=== PATIENT | female | born 1945 | race Caucasian/White ===

== ENCOUNTER 2017-12-03 11:07 | Emergency (ER) | payer MEDICARE, BC ==
[~2017-12-03] VITALS: Ht 165.1 cm; Wt 65.0 kg
[2017-12-03] MEDS ORDERED: LEVO88TA4 PO (11:33)
[2017-12-03] MEDS ORDERED: ESTR1TAB15 PO (11:33)
[2017-12-03 12:52] VITALS: BP 163/72
== END 2017-12-03 12:54 | disposition home or self-care (01) ==
LOC: ED 12:15
DX: R55 Syncope and collapse (principal); R11.0 Nausea; E03.9 Hypothyroidism, unspecified; E78.00 Pure hypercholesterolemia, unspecified
CPT/HCPCS: 93005; 99283; 99284